=== PATIENT | male | born 1965 | race Caucasian/White ===

== ENCOUNTER 2019-09-11 08:46 | Observation (INO) | payer MEDICAID ==
[2019-09-11] MEDS ORDERED: Alum Hydrox/Mag Hydrox/Simeth 15 ML, Lidocaine 2% 5 ML PO ONE ×2 (09:04)
--- NOTE | 2019-09-11 09:10 | EDM.PDOC ---
ED HPI GENERAL MEDICAL PROBLEM - General Chief Complaint: Chest Pain Stated Complaint: chest pain Time Seen by Provider: 09/11/19 09:05 Source of Information: Reports: Patient History Limitations: Reports: No Limitations - History of Present Illness INITIAL COMMENTS - FREE TEXT/NARRATIVE: ptVale is a 53 y/o male presenting today w/ 04/06 non-radiating mid-chest pain since last night. Describes as a pressure like sensations and/or something stuck in his chest. Endorses having a pressure sensation in the chest and needing to vomit; however he kept retching w/ minimal amount of clear liquid emesis. Denies any new SOB but declares having some "sinus" issues which causes him to have difficulty breathing. Denies any diarrhea, constipation but endorses mid upper abdominal pain ; like something is stuck. Mentions a history of peptic ulcers for which he takes omeprazole daily. Smokes 1 PPD, denies any recent methamphetimine or marijuan use; states its been "years" since i've done meth or coke". chest Pain Score (Numeric/FACES): 6 - Related Data Allergies Allergy/AdvReac Type Severity Reaction Status Date / Time No Known Allergies Allergy Verified 09/11/19 09:00 Home Meds: Home Meds Losartan Potassium 25 mg PO DAILY 09/11/19 [History] Omeprazole Magnesium [Prilosec Otc] 40 mg PO DAILY 09/11/19 [History] Zaleplon 10 mg PO DAILY 09/11/19 [History] Past Medical History - Past Health History Medical/Surgical History: Denies Medical/Surgical History HEENT History: Reports: Sinusitis Cardiovascular History: Reports: Hypertension Gastrointestinal History: Reports: GERD, Other (See Below) Other Gastrointestinal History: ULCERS - Infectious Disease History Infectious Disease History: Reports: Chicken Pox Social & Family History - Tobacco Use Smoking Status *Q: Current Every Day Smoker Years of Tobacco use: 37 Packs/Tins Daily: 1 - Caffeine Use Caffeine Use: Reports: Coffee Caffeine Use Comment: 2 pots/ day - Recreational Drug Use Recreational Drug Use: Yes Drug Use in Last 12 Months: Yes Recreational Drug Type: Reports: Cocaine, Marijuana/Hashish, Methamphetamine ED ROS GENERAL - Review of Systems Review Of Systems: See Below Constitutional: Reports: Decreased Appetite. Denies: Fever, Chills HEENT: Reports: Sinus Problem Respiratory: Reports: Shortness of Breath. Denies: Cough, Hemoptysis Cardiovascular: Reports: Chest Pain. Denies: Dyspnea on Exertion, Edema, Lightheadedness, Palpitations GI/Abdominal: Reports: Abdominal Pain. Denies: Constipation, Diarrhea, Nausea Musculoskeletal: Denies: Back Pain, Muscle Stiffness Skin: Reports: Rash Neurological: Denies: Confusion, Dizziness, Headache Psychiatric: Denies: Agitation, Anxiety ED EXAM, GENERAL - Physical Exam Exam: See Below Exam Limited By: No Limitations General Appearance: Alert, No Apparent Distress Ears: Normal TMs Throat/Mouth: Normal Inspection, Normal Oropharynx, Other (poor dentition) Head: Atraumatic, Normocephalic, Other (no sinus tenderness or fullness ) Neck: Normal Inspection, Supple Respiratory/Chest: Other (b/l coarse bs in bases. moving air but prolonged expiratory phase ) Cardiovascular: Regular Rate, Rhythm, No Edema, No JVD GI/Abdominal: Other (+amdominal tenderness w/ tenderenss more dominant in epigastrum) Extremities: Non-Tender, No Pedal Edema (numerous excoriations over lower extremities ) Neurological: Alert, Oriented, CN II-XII Intact Psychiatric: Normal Affect, Normal Mood Skin Exam: Warm, Dry, Rash (rash over chest ansd lower extremitiites ), Other ( red rash over right upper chest not in dermatomal distribution. most likely a viral exanthem vs excoriations from dry skin ) EKG INTERPRETATION EKG Date: 09/11/19 Rhythm: NSR ST-T: Normal (sinus / WNL ; no signs of ischemia) Course - Vital Signs Text/Narrative:: re-examination: chest x-ray WNL. negative lactate. negative troponin x 1 . Mild improvement w/ GI cocktail/Pepcid. Most likely GI pathology. Offered admit for observation. pt. agreed. States his last EGD was 10 years ago. EKG WNL, NSR w/o st elevation/ or signs of ischemia Discussed case w/ Dr. Bryant; agreed to admit for observation: ACS r/o. pt. agreed to plan. We appreciate Dr Frazier Last Recorded V/S: Last Vital Signs Temp 97.4 F 09/11/19 08:58 Pulse 85 09/11/19 08:58 Resp 15 09/11/19 08:58 BP 148/86 H 09/11/19 08:58 Pulse Ox 99 09/11/19 08:58 - Orders/Labs/Meds Orders: Active Orders 24 hr Category Date Time Status Admission Status [Patient Status] [ADT] Stat ADT 09/11/19 11:57 Active EKG 12 Lead [EKG Documentation Completion] [RC] STAT Care 09/11/19 09:03 Active diphenhydrAMINE [Benadryl] Med 09/11/19 12:05 Once 25 mg IVPUSH ONETIME ONE Labs: Laboratory Tests 09/11/19 09/11/19 09/11/19 Range/Units 08:55 08:55 09:25 WBC 10.35 (4.0-11.0) K/uL RBC 4.88 (4.50-5.90) M/uL Hgb 16.2 (13.0-17.0) g/dL Hct 46.2 (38.0-50.0) % MCV 94.7 (80.0-98.0) fL MCH 33.2 H (27.0-32.0) pg MCHC 35.1 (31.0-37.0) g/dL RDW Std Deviation 44.8 (28.0-62.0) fl RDW Coeff of Nya 13 (11.0-15.0) % Plt Count 203 (150-400) K/uL MPV 11.00 (7.40-12.00) fL Neut % (Auto) 66.6 (48.0-80.0) % Lymph % (Auto) 23.1 (16.0-40.0) % [place] % (Auto) 7.7 (0.0-15.0) % Eos % (Auto) 2.3 (0.0-7.0) % Baso % (Auto) 0.3 (0.0-1.5) % Neut # (Auto) 6.9 H (1.4-5.7) K/uL Lymph # (Auto) 2.4 (0.6-2.4) K/uL [place] # (Auto) 0.8 (0.0-0.8) K/uL Eos # (Auto) 0.2 (0.0-0.7) K/uL Baso # (Auto) 0.0 (0.0-0.1) K/uL Nucleated RBC % 0.0 /100WBC Nucleated RBCs # 0 K/uL Lactate (0.20-2.00) mmol/L Sodium 134 L (136-148) mmol/L Potassium 4.2 (3.5-5.1) mmol/L Chloride 98 (98-107) mmol/L Carbon Dioxide 27.7 (21.0-32.0) mmol/L BUN 11 (7.0-18.0) mg/dL Creatinine 1.0 (0.8-1.3) mg/dL Est Cr Clr Drug Dosing 93.08 mL/min Estimated GFR (MDRD) > 60.0 ml/min Glucose 89 (74-106) mg/dL Calcium 8.6 (8.5-10.1) mg/dL Total Bilirubin 0.7 (0.2-1.0) mg/dL AST 25 (15-37) IU/L ALT 33 (14-63) IU/L Alkaline Phosphatase 75 (46-116) U/L Troponin I < 0.050 (0.000-0.056) ng/mL Total Protein 7.5 (6.4-8.2) g/dL Albumin 4.0 (3.4-5.0) g/dL Globulin 3.5 (2.6-4.0) g/dL Albumin/Globulin Ratio 1.1 (0.9-1.6) Lipase 121 (73-393) U/L Urine Opiates Screen NEGATIVE (NEGATIVE) Ur Oxycodone Screen NEGATIVE (NEGATIVE) Urine Methadone Screen NEGATIVE (NEGATIVE) Ur Barbiturates Screen NEGATIVE (NEGATIVE) Ur Phencyclidine Scrn NEGATIVE (NEGATIVE) Ur Amphetamine Screen NEGATIVE (NEGATIVE) U Methamphetamines Scrn NEGATIVE (NEGATIVE) U Benzodiazepines Scrn NEGATIVE (NEGATIVE) U Cocaine Metab Screen NEGATIVE (NEGATIVE) U Marijuana (THC) Screen POSITIVE (NEGATIVE) 09/11/19 Range/Units 11:05 WBC (4.0-11.0) K/uL RBC (4.50-5.90) M/uL Hgb (13.0-17.0) g/dL Hct (38.0-50.0) % MCV (80.0-98.0) fL MCH (27.0-32.0) pg MCHC (31.0-37.0) g/dL RDW Std Deviation (28.0-62.0) fl RDW Coeff of Nya (11.0-15.0) % Plt Count (150-400) K/uL MPV (7.40-12.00) fL Neut % (Auto) (48.0-80.0) % Lymph % (Auto) (16.0-40.0) % [place] % (Auto) (0.0-15.0) % Eos % (Auto) (0.0-7.0) % Baso % (Auto) (0.0-1.5) % Neut # (Auto) (1.4-5.7) K/uL Lymph # (Auto) (0.6-2.4) K/uL [place] # (Auto) (0.0-0.8) K/uL Eos # (Auto) (0.0-0.7) K/uL Baso # (Auto) (0.0-0.1) K/uL Nucleated RBC % /100WBC Nucleated RBCs # K/uL Lactate 0.9 (0.20-2.00) mmol/L Sodium (136-148) mmol/L Potassium (3.5-5.1) mmol/L Chloride (98-107) mmol/L Carbon Dioxide (21.0-32.0) mmol/L BUN (7.0-18.0) mg/dL Creatinine (0.8-1.3) mg/dL Est Cr Clr Drug Dosing mL/min Estimated GFR (MDRD) ml/min Glucose (74-106) mg/dL Calcium (8.5-10.1) mg/dL Total Bilirubin (0.2-1.0) mg/dL AST (15-37) IU/L ALT (14-63) IU/L Alkaline Phosphatase (46-116) U/L Troponin I (0.000-0.056) ng/mL Total Protein (6.4-8.2) g/dL Albumin (3.4-5.0) g/dL Globulin (2.6-4.0) g/dL Albumin/Globulin Ratio (0.9-1.6) Lipase (73-393) U/L Urine Opiates Screen (NEGATIVE) Ur Oxycodone Screen (NEGATIVE) Urine Methadone Screen (NEGATIVE) Ur Barbiturates Screen (NEGATIVE) Ur Phencyclidine Scrn (NEGATIVE) Ur Amphetamine Screen (NEGATIVE) U Methamphetamines Scrn (NEGATIVE) U Benzodiazepines Scrn (NEGATIVE) U Cocaine Metab Screen (NEGATIVE) U Marijuana (THC) Screen (NEGATIVE) Meds: Medications Discontinued Medications Generic Name Dose Route Start Last Admin Trade Name Freq PRN Reason Stop Dose Admin Aspirin 324 mg 09/11/19 10:37 09/11/19 10:48 Aspirin PO 09/11/19 10:38 324 mg ONETIME ONE Administration Al Hydroxide/Mg Hydroxide 15 0 ml 09/11/19 09:04 09/11/19 09:09 ml/ Lidocaine HCl 5 ml PO 09/11/19 09:05 1 each ONETIME ONE Administration Famotidine 20 mg 09/11/19 11:01 09/11/19 11:36 Pepcid IVPUSH 09/11/19 11:02 20 mg ONETIME ONE Administration Departure - Departure Time of Disposition: 12:07 Disposition: Refer to Observation Clinical Impression: Chest pain Referrals: PCP,Unknown [Primary Care Provider] - Forms: ED Department Discharge - My Orders Last 24 Hours: My Active Orders 09/11/19 09:03 EKG 12 Lead [EKG Documentation Completion] [RC] STAT 09/11/19 11:57 Admission Status [Patient Status] [ADT] Stat 09/11/19 12:05 diphenhydrAMINE [Benadryl] 25 mg IVPUSH ONETIME ONE - Assessment/Plan Last 24 Hours: My Active Orders 09/11/19 09:03 EKG 12 Lead [EKG Documentation Completion] [RC] STAT 09/11/19 11:57 Admission Status [Patient Status] [ADT] Stat 09/11/19 12:05 diphenhydrAMINE [Benadryl] 25 mg IVPUSH ONETIME ONE
[2019-09-11 09:42] LABS: BLOOD UREA NITROGEN,BUN 11 mg/dL (7.0-18.0); CARBON DIOXIDE,CO2 27.7 mmol/L (21.0-32.0); CHLORIDE,CL 98 mmol/L (98-107); GLUCOSE RANDOM 89 mg/dL (74-106); LIPASE 121 U/L (73-393); POTASSIUM,K 4.2 mmol/L (3.5-5.1); SODIUM,NA 134 mmol/L (136-148)
--- NOTE | 2019-09-11 09:49 | CR ---
CHEST 2 VIEWS INDICATION: Chest pain and shortness of breath. IMPRESSION: Normal heart size and vascular pattern. ECG Monitor leads projected over the patient. Lungs are clear. No pneumothorax or pleural effusion. Dictated by Talha Stark MD @ Sep 11 2019 9:47AM Signed by Dr. Talha Stark @ Sep 11 2019 9:48AM
[2019-09-11] MEDS ORDERED: Aspirin 81 MG Tab.Chew PO ONE (10:37)
[2019-09-11] MEDS ORDERED: Famotidine 20 MG/2 ML SDV IVPUSH ONE (11:01)
[2019-09-11] MEDS ORDERED: diphenhydrAMINE 50 MG/ML SDV IVPUSH ONE (12:05)
[2019-09-11] MEDS ORDERED: Sodium Chloride 0.9% 10 ML Syringe FLUSH PRN (13:03)
[2019-09-11] MEDS ORDERED: Sodium Chloride 0.9% 2.5 ML Syringe FLUSH PRN (13:03)
[2019-09-11] MEDS ORDERED: Acetaminophen 325 MG Tab PO PRN (13:03)
[2019-09-11] MEDS ORDERED: Ondansetron 4 MG/2 ML SDV IVPUSH PRN (13:03)
--- NOTE | 2019-09-11 13:08 | PCM.HP.2 ---
H&P History of Present Illness - General Date of Service: 09/11/19 Admit Problem/Dx: Admission Diagnosis/Problem Admission Diagnosis/Problem Chest pain Source of Information: Patient History Limitations: Reports: No Limitations - History of Present Illness Initial Comments - Free Text/Narative: This 53 year old male with pmh of polysubstance abuse in the past, tobacco abuse , GERD, HTN presented to the ED with pressure like sensations and/or something stuck in his chest since last evening around 12:30. He attempted to throw up with no success. He felt no associated symptoms. he reports history of peptic ulcers and takes medication daily for this. He smokes a little more than a 1/2 ppd of cigarettes and uses marijuana occasionally. No recent other recreational drug use. He adamantly does not want to stay, he is willing to stay for one more troponin but otherwise he keeps talking about how he is not staying overnight here due to the amount of money he has invested in tools in his truck. We discussed the need for him to sign out AMA due to the risk of or injury if the pain he was having was a heart attack. "I know if I leave its on me." In the ED labwork WNL. EKG SR no ST elevation. Troponin negative. He was on the floor for at most 2 hours, second troponin negative. He then left AMA prior to being seen again by myself my attending Dr Bryant. chest Pain Score (Numeric/FACES): 6 - Related Data Allergies/Adverse Reactions: Allergies Allergy/AdvReac Type Severity Reaction Status Date / Time No Known Allergies Allergy Verified 09/11/19 12:58 Home Medications: Home Meds Losartan Potassium 25 mg PO DAILY 09/11/19 [History] Omeprazole Magnesium [Prilosec Otc] 40 mg PO DAILY 09/11/19 [History] Zaleplon 10 mg PO DAILY 09/11/19 [History] Past Medical History - Past Health History Medical/Surgical History: Denies Medical/Surgical History HEENT History: Reports: Sinusitis Cardiovascular History: Reports: Hypertension Gastrointestinal History: Reports: GERD, Other (See Below) Other Gastrointestinal History: ULCERS - Infectious Disease History Infectious Disease History: Reports: Chicken Pox Social & Family History - Tobacco Use Smoking Status *Q: Current Every Day Smoker Years of Tobacco use: 37 Packs/Tins Daily: 1 - Caffeine Use Caffeine Use: Reports: Coffee Caffeine Use Comment: 2 pots/ day - Recreational Drug Use Recreational Drug Use: Yes Drug Use in Last 12 Months: Yes Recreational Drug Type: Reports: Cocaine, Marijuana/Hashish, Methamphetamine H&P Review of Systems - Review of Systems: Review Of Systems: See Below General: Reports: No Symptoms. Denies: Fever, Chills, Malaise Pulmonary: Reports: No Symptoms. Denies: Shortness of Breath Cardiovascular: Reports: No Symptoms. Denies: Chest Pain (no longer having pain. feels normal), Palpitations, Orthopnea Gastrointestinal: Reports: No Symptoms. Denies: Abdominal Pain, Decreased Appetite, Nausea, Vomiting Genitourinary: Reports: No Symptoms. Denies: Dysuria, Frequency Psychiatric: Reports: No Symptoms Neurological: Reports: No Symptoms Hematologic/Lymphatic: Reports: No Symptoms Immunologic: Reports: No Symptoms Exam - Exam Exam: See Below - Vital Signs Vital Signs: Last Vital Signs Temp 97.4 F 09/11/19 08:58 Pulse 85 09/11/19 08:58 Resp 16 09/11/19 12:00 BP 114/96 H 09/11/19 12:00 Pulse Ox 97 09/11/19 12:00 Weight: 86.636 kg - Exam General: Alert, Oriented HEENT: Conjunctiva Clear, Pupils Equal, Pupils Reactive Lungs: Clear to Auscultation, Normal Respiratory Effort Cardiovascular: Regular Rate, Regular Rhythm GI/Abdominal Exam: Normal Bowel Sounds, Soft, Non-Tender Extremities: Normal Inspection, Normal Range of Motion, Non-Tender Neuro Extensive - Mental Status: Alert, Oriented x3 Neuro Extensive - Motor, Sensory, Reflexes: CN II-XII Intact Psychiatric: Alert, Normal Affect, Normal Mood - Patient Data Lab Results Last 24 hrs: Laboratory Results - last 24 hr 09/11/19 09/11/19 09/11/19 Range/Units 08:55 08:55 09:25 WBC 10.35 (4.0-11.0) K/uL RBC 4.88 (4.50-5.90) M/uL Hgb 16.2 (13.0-17.0) g/dL Hct 46.2 (38.0-50.0) % MCV 94.7 (80.0-98.0) fL MCH 33.2 H (27.0-32.0) pg MCHC 35.1 (31.0-37.0) g/dL RDW Std Deviation 44.8 (28.0-62.0) fl RDW Coeff of Nya 13 (11.0-15.0) % Plt Count 203 (150-400) K/uL MPV 11.00 (7.40-12.00) fL Neut % (Auto) 66.6 (48.0-80.0) % Lymph % (Auto) 23.1 (16.0-40.0) % [place] % (Auto) 7.7 (0.0-15.0) % Eos % (Auto) 2.3 (0.0-7.0) % Baso % (Auto) 0.3 (0.0-1.5) % Neut # (Auto) 6.9 H (1.4-5.7) K/uL Lymph # (Auto) 2.4 (0.6-2.4) K/uL [place] # (Auto) 0.8 (0.0-0.8) K/uL Eos # (Auto) 0.2 (0.0-0.7) K/uL Baso # (Auto) 0.0 (0.0-0.1) K/uL Nucleated RBC % 0.0 /100WBC Nucleated RBCs # 0 K/uL Lactate (0.20-2.00) mmol/L Sodium 134 L (136-148) mmol/L Potassium 4.2 (3.5-5.1) mmol/L Chloride 98 (98-107) mmol/L Carbon Dioxide 27.7 (21.0-32.0) mmol/L BUN 11 (7.0-18.0) mg/dL Creatinine 1.0 (0.8-1.3) mg/dL Est Cr Clr Drug Dosing 93.08 mL/min Estimated GFR (MDRD) > 60.0 ml/min Glucose 89 (74-106) mg/dL Calcium 8.6 (8.5-10.1) mg/dL Total Bilirubin 0.7 (0.2-1.0) mg/dL AST 25 (15-37) IU/L ALT 33 (14-63) IU/L Alkaline Phosphatase 75 (46-116) U/L Troponin I < 0.050 (0.000-0.056) ng/mL Total Protein 7.5 (6.4-8.2) g/dL Albumin 4.0 (3.4-5.0) g/dL Globulin 3.5 (2.6-4.0) g/dL Albumin/Globulin Ratio 1.1 (0.9-1.6) Lipase 121 (73-393) U/L Urine Opiates Screen NEGATIVE (NEGATIVE) Ur Oxycodone Screen NEGATIVE (NEGATIVE) Urine Methadone Screen NEGATIVE (NEGATIVE) Ur Barbiturates Screen NEGATIVE (NEGATIVE) Ur Phencyclidine Scrn NEGATIVE (NEGATIVE) Ur Amphetamine Screen NEGATIVE (NEGATIVE) U Methamphetamines Scrn NEGATIVE (NEGATIVE) U Benzodiazepines Scrn NEGATIVE (NEGATIVE) U Cocaine Metab Screen NEGATIVE (NEGATIVE) U Marijuana (THC) Screen POSITIVE (NEGATIVE) 09/11/19 Range/Units 11:05 WBC (4.0-11.0) K/uL RBC (4.50-5.90) M/uL Hgb (13.0-17.0) g/dL Hct (38.0-50.0) % MCV (80.0-98.0) fL MCH (27.0-32.0) pg MCHC (31.0-37.0) g/dL RDW Std Deviation (28.0-62.0) fl RDW Coeff of Nya (11.0-15.0) % Plt Count (150-400) K/uL MPV (7.40-12.00) fL Neut % (Auto) (48.0-80.0) % Lymph % (Auto) (16.0-40.0) % [place] % (Auto) (0.0-15.0) % Eos % (Auto) (0.0-7.0) % Baso % (Auto) (0.0-1.5) % Neut # (Auto) (1.4-5.7) K/uL Lymph # (Auto) (0.6-2.4) K/uL [place] # (Auto) (0.0-0.8) K/uL Eos # (Auto) (0.0-0.7) K/uL Baso # (Auto) (0.0-0.1) K/uL Nucleated RBC % /100WBC Nucleated RBCs # K/uL Lactate 0.9 (0.20-2.00) mmol/L Sodium (136-148) mmol/L Potassium (3.5-5.1) mmol/L Chloride (98-107) mmol/L Carbon Dioxide (21.0-32.0) mmol/L BUN (7.0-18.0) mg/dL Creatinine (0.8-1.3) mg/dL Est Cr Clr Drug Dosing mL/min Estimated GFR (MDRD) ml/min Glucose (74-106) mg/dL Calcium (8.5-10.1) mg/dL Total Bilirubin (0.2-1.0) mg/dL AST (15-37) IU/L ALT (14-63) IU/L Alkaline Phosphatase (46-116) U/L Troponin I (0.000-0.056) ng/mL Total Protein (6.4-8.2) g/dL Albumin (3.4-5.0) g/dL Globulin (2.6-4.0) g/dL Albumin/Globulin Ratio (0.9-1.6) Lipase (73-393) U/L Urine Opiates Screen (NEGATIVE) Ur Oxycodone Screen (NEGATIVE) Urine Methadone Screen (NEGATIVE) Ur Barbiturates Screen (NEGATIVE) Ur Phencyclidine Scrn (NEGATIVE) Ur Amphetamine Screen (NEGATIVE) U Methamphetamines Scrn (NEGATIVE) U Benzodiazepines Scrn (NEGATIVE) U Cocaine Metab Screen (NEGATIVE) U Marijuana (THC) Screen (NEGATIVE) Result Diagrams: 09/11/19 08:55 09/11/19 08:55 - Problem List (1) Chest pain SNOMED Code(s): 24869529 ICD Code: R07.9 - CHEST PAIN, UNSPECIFIED Status: Acute Problem List Initiated/Reviewed/Updated: Yes Orders Last 24hrs: Active Orders 24 hr Category Date Time Status Admission Status [Patient Status] [ADT] Stat ADT 09/11/19 12:12 Active Antiembolic Devices [RC] PER UNIT ROUTINE Care 09/11/19 13:07 Ordered Intake and Output [RC] QSHIFT Care 09/11/19 13:06 Ordered Oxygen Therapy [RC] PRN Care 09/11/19 13:05 Ordered Telemetry Monitoring [Cardiac Monitoring] [RC] . Care 09/11/19 12:17 Active DIRECTED Telemetry Monitoring [Cardiac Monitoring] [RC] . Care 09/11/19 13:02 Ordered DIRECTED Up ad Roxanne [RC] ASDIRECTED Care 09/11/19 13:03 Ordered VTE/DVT Education [RC] PER UNIT ROUTINE Care 09/11/19 13:05 Ordered Vital Signs [RC] Q4H Care 09/11/19 13:05 Ordered Heart Healthy Diet [DIET] Diet 09/11/19 Lunch Ordered Acetaminophen [Tylenol] Med 09/11/19 13:03 Ordered 650 mg PO Q4H PRN Ondansetron [Zofran] Med 09/11/19 13:03 Ordered 4 mg IVPUSH Q4H PRN Sodium Chloride 0.9% [Saline Flush] Med 09/11/19 13:03 Ordered 10 ml FLUSH ASDIRECTED PRN Sodium Chloride 0.9% [Saline Flush] Med 09/11/19 13:03 Ordered 2.5 ml FLUSH ASDIRECTED PRN Saline Lock Insert [OM.PC] Routine Oth 09/11/19 13:03 Ordered Sequential Compression Device [OM.PC] Per Unit Routine Oth 09/11/19 13:06 Ordered Resuscitation Status Routine Resus Stat 09/11/19 13:03 Ordered Medication Orders Acetaminophen (Tylenol) 650 mg PO Q4H PRN PRN Reason: Pain (Mild 1-3)/fever Ondansetron HCl (Zofran) 4 mg IVPUSH Q4H PRN PRN Reason: Nausea Sodium Chloride (Saline Flush) 10 ml FLUSH ASDIRECTED PRN PRN Reason: Keep Vein Open Sodium Chloride (Saline Flush) 2.5 ml FLUSH ASDIRECTED PRN PRN Reason: Keep Vein Open Assessment/Plan Comment:: Discharge plan: patient left AMA prior to being fully evaluated for chest pain. - Mortality Measure Prognosis:: Good
[2019-09-11] MEDS ORDERED: IPRATROPIUM BROMIDE 0.03% NASBOTH PRN (13:59)
[2019-09-11 14:02] LABS: HEMOGLOBIN A1C 5.6 % (4.5-6.2)
[2019-09-11 14:37] VITALS: BP 136/85; PULSE 70
--- NOTE | 2019-09-11 15:36 | PCM.SN ---
- Free Text/Narrative Note: Patient left AMA before i could evaluate him.
[2019-09-11] MEDS ORDERED: ZALEPLON 10 MG PO PRN (21:00)
[2019-09-12] MEDS ORDERED: OMEPRAZOLE 40MG PO SCH (07:30)
[2019-09-12] MEDS ORDERED: LOSARTAN 25MG PO SCH (09:00)
== END 2019-09-11 15:20 | disposition left against medical advice (07) ==
LOC: MW.ED 08:46 → MW.MS 12:12
PROVIDERS: ADMIT Student in an Organized Health Care Education/Training Program; ATTEND Student in an Organized Health Care Education/Training Program
DX: R07.89 Other chest pain (principal); K21.9 Gastro-esophageal reflux disease without esophagitis; I10 Essential (primary) hypertension; F17.210 Nicotine dependence, cigarettes, uncomplicated
CPT/HCPCS: 36415; 71046; 80053; 80061; 80305; 83036; 83605; 83690; 84443; 84484; 85025; 93005; 96374; 96375; 99285; A9270; J1200; S0028; 99283; G0378; J3490

== ENCOUNTER 2020-06-15 17:54 | Emergency (ER) | payer MEDICAID, MEDICARE ==
[2020-06-15 18:23] VITALS: BP 110/77; PULSE 76
[2020-06-15] MEDS ORDERED: Sodium Chloride 0.9% 10 ML Syringe FLUSH PRN (18:47)
[2020-06-15] MEDS ORDERED: Sodium Chloride 0.9% 2.5 ML Syringe FLUSH PRN (18:47)
--- NOTE | 2020-06-15 18:49 | PCM.SN.2 ---
- Free Text/Narrative Note: Brief screening triage note. 54-year-old male presenting with a one-week history of intermittent chest pain, subjective abdominal distention, and intermittent abdominal pain. Chief complaint right now is generalized abdominal pain, had 2 episodes of nonbloody emesis prior to arrival. Also reports subjective constipation. Fleeting chest pain, none right now. Will order EKG, basic labs, troponin. Planned to sign out to oncoming nighttime physician at 1900 hrs. shift change - pt was picked up by AVELINO Owusu. In- person sign out was given to GLENNY to complete transition of care.
--- NOTE | 2020-06-15 19:13 | EDM.PDOC ---
ED [facility] GENERAL MEDICAL PROBLEM - General Chief Complaint: Abdominal Pain Stated Complaint: STOMACHE PAIN Time Seen by Provider: 06/15/20 18:49 Source of Information: Reports: Intermediate Records History Limitations: Reports: No Limitations - History of Present Illness INITIAL COMMENTS - FREE TEXT/NARRATIVE: HISTORY AND PHYSICAL: Add to HPI: (Assumed care of patient at 19:00. Received report from Dr. Lawton. Patient states he does drink alcohol and has about 3-4 beers a week. Patient states that he did have heavier alcohol use when he was younger but has decreased his use of alcohol. Patient does state he smokes a pack of cigarettes a day and has had shortness of breath off and on with the chest pain but is not currently having the symptoms at this time. Patient states he has had a hard time eating and drinking without having abdominal pain. Patient states he did have 2 beers today and started having worsening abdominal pain following this. Patient denies fever, chills, or cough. Denies headache, neck stiff ness, change in vision, syncope, or near syncope. Denies diarrhea, constipation, or dysuria. Has not noted any blood in urine or stool. Review of systems: As per history of present illness and below otherwise all systems reviewed and negative. Past medical history: As per history of present illness and as reviewed below otherwise noncontributory. Surgical history: As per history of present illness and as reviewed below otherwise noncontributory. Social history: See social history for further information Family history: As per history of present illness and as reviewed below otherwise noncontributory. Physical exam: General: Patient is alert, oriented, and in no acute distress. Patient sitting comfortably on exam table. Appears older than stated age. HEENT: Atraumatic, normocephalic, pupils equal and reactive bilaterally, negative for conjunctival pallor or scleral icterus, mucous membranes moist, TMs normal bilaterally, throat clear, neck supple, nontender, trachea midline. No drooling or trismus noted. No meningeal signs. No hot potato voice noted. Lungs: Clear to auscultation, breath sounds equal bilaterally, chest nontender. Heart: S1S2, regular rate and rhythm without overt murmur Abdomen: Distended, generalized moderate tenderness to palpation. Negative for costovertebral tenderness. Pelvis: Stable nontender. Genitourinary: Deferred. Rectal: Deferred. Skin: Intact, warm, dry. No lesions or rashes noted. Extremities: Atraumatic, negative for cords or calf pain. Neurovascular unremarkable. Neuro: Awake, alert, oriented. Cranial nerves II through XII unremarkable. Cerebellum unremarkable. Motor and sensory unremarkable throughout. Exam nonfocal. Notes: Dr. Carney directly involved in patient care. Patient was offered admission to observation and for further diagnostic evaluation but declines admission and adamantly requesting discharge after receiving antibiotics. We will give him IV antibiotics today in the ED for potential infectious cause as well as send him home on antibiotics. Instructed patient that he should seek outpatient colonoscopy and have this performed by general surgery. Patient referred to general surgery for colonoscopy as well is back to his primary care provider, Dr. Hebert. Signs and symptoms that would prompt return to the ED were thoroughly discussed with patient and expresses understanding. Voices understanding and is agreeable to plan of care. Denies any further questions or concerns at this time. Diagnostics: CBC, CMP, UA, EKG, CXR, Trop, Lipase, Abd/pelvic w cont Therapeutics: Flagyl IV, Rocephin IV Prescription: Fatou Strickland Impression: Colitis Abdominal pain, generalized Plan: 1. Take medication as prescribed. You can use Tylenol as directed for pain and discomfort. 2. Follow-up with your primary care provider as well as a general surgeon as discussed. Return to the ED as needed and as discussed. Definitive disposition and diagnosis as appropriate pending reevaluation and review of above Abdomen Pain Score (Numeric/FACES): 10 - Related Data Allergies Allergy/AdvReac Type Severity Reaction Status Date / Time No Known Allergies Allergy Verified 06/15/20 18:18 Home Meds: Home Meds Losartan Potassium 25 mg PO DAILY 09/11/19 [History] Zaleplon 10 mg PO DAILY 09/11/19 [History] Ciprofloxacin [Ciprofloxacin HCl] 500 mg PO BID 14 Days #28 tab 06/15/20 [Rx] metroNIDAZOLE [Flagyl] 500 mg PO TID 14 Days #42 tab 06/15/20 [Rx] Past Medical History - Past Health History Medical/Surgical History: Denies Medical/Surgical History HEENT History: Reports: Sinusitis Cardiovascular History: Reports: Hypertension Respiratory History: Reports: None Gastrointestinal History: Reports: GERD, Other (See Below) Other Gastrointestinal History: ULCERS Genitourinary History: Reports: None Musculoskeletal History: Reports: None Neurological History: Reports: None Psychiatric History: Reports: None Endocrine/Metabolic History: Reports: None Insulin Pump Model and Cell Maker: None Hematologic History: Reports: None Immunologic History: Reports: None Oncologic (Cancer) History: Reports: None Dermatologic History: Reports: None - Infectious Disease History Infectious Disease History: Reports: None - Past Surgical History Head Surgeries/Procedures: Reports: None Neurological Surgical History: Reports: None Social & Family History - Family History Family Medical History: Noncontributory - Tobacco Use Smoking Status *Q: Current Every Day Smoker Years of Tobacco use: 40 Packs/Tins Daily: 0.5 - Caffeine Use Caffeine Use: Reports: Coffee Caffeine Use Comment: 2 pots/ day - Recreational Drug Use Recreational Drug Use: Yes Drug Use in Last 12 Months: Yes Recreational Drug Type: Reports: Marijuana/Hashish ED ROS GENERAL - Review of Systems Review Of Systems: Comprehensive ROS is negative, except as noted in HPI. ED EXAM, GENERAL - Physical Exam Exam: See Below (see dictation) Course - Vital Signs Last Recorded V/S: Last Vital Signs Temp 96.5 F L 06/15/20 18:18 Pulse 76 06/15/20 18:18 Resp 18 06/15/20 18:18 BP 110/77 06/15/20 18:18 Pulse Ox 96 06/15/20 18:18 - Orders/Labs/Meds Orders: Active Orders 24 hr Category Date Time Status EKG Documentation Completion [RC] STAT Care 06/15/20 18:47 Active Pulse Oximetry [RC] ASDIRECTED Care 06/15/20 18:47 Active Sodium Chloride 0.9% [Saline Flush] Med 06/15/20 18:47 Active 10 ml FLUSH ASDIRECTED PRN Sodium Chloride 0.9% [Saline Flush] Med 06/15/20 18:47 Active 2.5 ml FLUSH ASDIRECTED PRN metroNIDAZOLE/Normal Saline [Flagyl 500 MG in NS 100 ML Med 06/15/20 20:48 Active ] 500 mg Premix Bag 1 bag IV ONETIME Saline Lock Insert [OM.PC] Stat Oth 06/15/20 18:47 Ordered Medication Orders Metronidazole 500 mg/ Premix 100 mls @ 100 mls/hr IV ONETIME ONE Stop: 06/15/20 21:47 Last Admin: 06/15/20 21:17 Dose: 100 mls/hr Documented by: NAGA Sodium Chloride (Saline Flush) 2.5 ml FLUSH ASDIRECTED PRN PRN Reason: Keep Vein Open Sodium Chloride (Saline Flush) 10 ml FLUSH ASDIRECTED PRN PRN Reason: Keep Vein Open Labs: Laboratory Tests 06/15/20 06/15/20 06/15/20 Range/Units 18:43 18:43 18:43 WBC 10.18 (4.0-11.0) K/uL RBC 4.96 (4.50-5.90) M/uL Hgb 16.5 (13.0-17.0) g/dL Hct 46.4 (38.0-50.0) % MCV 93.5 (80.0-98.0) fL MCH 33.3 H (27.0-32.0) pg MCHC 35.6 (31.0-37.0) g/dL RDW Std Deviation 44.0 (28.0-62.0) fl RDW Coeff of Nya 13 (11.0-15.0) % Plt Count 266 (150-400) K/uL MPV 11.60 (7.40-12.00) fL Neut % (Auto) 60.7 (48.0-80.0) % Lymph % (Auto) 26.6 (16.0-40.0) % [place] % (Auto) 7.4 (0.0-15.0) % Eos % (Auto) 4.7 (0.0-7.0) % Baso % (Auto) 0.6 (0.0-1.5) % Neut # (Auto) 6.2 H (1.4-5.7) K/uL Lymph # (Auto) 2.7 H (0.6-2.4) K/uL [place] # (Auto) 0.8 (0.0-0.8) K/uL Eos # (Auto) 0.5 (0.0-0.7) K/uL Baso # (Auto) 0.1 (0.0-0.1) K/uL Nucleated RBC % 0.0 /100WBC Nucleated RBCs # 0 K/uL Lactate 0.8 (0.20-2.00) mmol/L Sodium 136 (136-148) mmol/L Potassium 4.3 (3.5-5.1) mmol/L Chloride 99 (98-107) mmol/L Carbon Dioxide 25.9 (21.0-32.0) mmol/L BUN 8 (7.0-18.0) mg/dL Creatinine 1.0 (0.8-1.3) mg/dL Est Cr Clr Drug Dosing 92.03 mL/min Estimated GFR (MDRD) > 60.0 ml/min Glucose 91 (74-106) mg/dL Calcium 9.5 (8.5-10.1) mg/dL Total Bilirubin 0.4 (0.2-1.0) mg/dL AST 33 (15-37) IU/L ALT 34 (14-63) IU/L Alkaline Phosphatase 73 (46-116) U/L Troponin I < 0.050 (0.000-0.056) ng/mL Total Protein 7.7 (6.4-8.2) g/dL Albumin 4.0 (3.4-5.0) g/dL Globulin 3.7 (2.6-4.0) g/dL Albumin/Globulin Ratio 1.1 (0.9-1.6) Lipase 92 (73-393) U/L Meds: Medications Generic Name Dose Route Start Last Admin Trade Name Freq PRN Reason Stop Dose Admin Metronidazole 500 mg/ Premix 100 mls @ 100 mls/hr 06/15/20 20:48 06/15/20 21:17 IV 06/15/20 21:47 100 mls/hr ONETIME ONE Administration Sodium Chloride 2.5 ml 06/15/20 18:47 Saline Flush FLUSH ASDIRECTED PRN Keep Vein Open Sodium Chloride 10 ml 06/15/20 18:47 Saline Flush FLUSH ASDIRECTED PRN Keep Vein Open Discontinued Medications Generic Name Dose Route Start Last Admin Trade Name Freq PRN Reason Stop Dose Admin Ceftriaxone Sodium/Dextrose 1 50 mls @ 100 mls/hr 06/15/20 20:47 06/15/20 21:16 gm/ Premix IV 06/15/20 21:16 100 mls/hr ONETIME ONE Administration Iopamidol 100 ml 06/15/20 20:16 06/15/20 20:16 Isovue-370 (76%) IVPUSH 06/15/20 20:17 100 ml ONETIME STA Administration Departure - Departure Time of Disposition: 20:52 Disposition: Home, Self-Care 01 Clinical Impression: Colitis, Generalized abdominal pain - Discharge Information Prescriptions: Ciprofloxacin [Ciprofloxacin HCl] 500 mg PO BID 14 Days #28 tab metroNIDAZOLE [Flagyl] 500 mg PO TID 14 Days #42 tab Referrals: Kwesi Hebert CRNA [Physician] - Forms: ED Department Discharge Additional Instructions: The following information is given to patients seen in the emergency department who are being discharged to home. This information is to outline your options for follow-up care. We provide all patients seen in our emergency department with a follow-up referral. The need for follow-up, as well as the timing and circumstances, are variable depending upon the specifics of your emergency department visit. If you don't have a primary care physician on staff, we will provide you with a referral. We always advise you to contact your personal physician following an emergency department visit to inform them of the circumstance of the visit and for follow-up with them and/or the need for any referrals to a consulting specialist. The emergency department will also refer you to a specialist when appropriate. This referral assures that you have the opportunity for follow-up care with a specialist. All of these measure are taken in an effort to provide you with optimal care, which includes your follow-up. Under all circumstances we always encourage you to contact your private physician who remains a resource for coordinating your care. When calling for follow-up care, please make the office aware that this follow-up is from your recent emergency room visit. If for any reason you are refused follow-up, please contact the [facility] Emergency Department at and asked to speak to the emergency department charge nurse. [facility] [address] [place] [id number] [address] [facility] - General Surgery Professional Building [address] [place], [address] [place] [address] 1. Take medication as prescribed. You can use Tylenol as directed for pain and discomfort. 2. Follow-up with your primary care provider as well as a general surgeon as discussed. Return to the ED as needed and as discussed. Sepsis Event Note (ED) - Evaluation Sepsis Screening Result: No Definite Risk - Focused Exam Vital Signs: Vital Signs Temp Pulse Resp BP Pulse Ox 06/15/20 18:18 96.5 F L 76 18 110/77 96 - My Orders Last 24 Hours: My Active Orders 06/15/20 20:48 metroNIDAZOLE/Normal Saline [Flagyl 500 MG in NS 100 ML] 500 mg Premix Bag 1 bag IV ONETIME - Assessment/Plan Last 24 Hours: My Active Orders 06/15/20 20:48 metroNIDAZOLE/Normal Saline [Flagyl 500 MG in NS 100 ML] 500 mg Premix Bag 1 bag IV ONETIME
[2020-06-15 19:30] LABS: BLOOD UREA NITROGEN,BUN 8 mg/dL (7.0-18.0); CARBON DIOXIDE,CO2 25.9 mmol/L (21.0-32.0); CHLORIDE,CL 99 mmol/L (98-107); GLUCOSE RANDOM 91 mg/dL (74-106); LIPASE 92 U/L (73-393); POTASSIUM,K 4.3 mmol/L (3.5-5.1); SODIUM,NA 136 mmol/L (136-148)
--- NOTE | 2020-06-15 19:46 | CR ---
Chest: Portable view of the chest was obtained. Comparison: Previous chest x-ray of 09/11/19. Heart size and mediastinum are normal. Lungs are clear with no acute parenchymal change. Bony structures are grossly intact. Impression: 1. Nothing acute is seen on portable chest x-ray. Diagnostic code #1 This report was dictated in MDT
[2020-06-15] MEDS ORDERED: Iopamidol 755 Mg/ML 100 ML Bottle IVPUSH STA (20:16)
--- NOTE | 2020-06-15 20:36 | CT ---
Indication: Abdominal pain. Technique: Multiple contiguous axial images were obtained from lung bases to the symphysis pubis after the intravenous administration of 100 milliliters Isovue 370. Please note that all CT scans at this facility use dose modulation, iterative reconstruction, and/or weight-based dosing when appropriate to reduce radiation dose to as low as reasonably achievable. Comparison: None Findings: The lung bases are clear. No infiltrate, pleural effusion, or pneumothorax is identified. The heart is normal in size. Coronary artery calcifications are identified. No pericardial effusions identified. The liver, gallbladder, spleen, pancreas, adrenals, and kidneys are normal. No intrahepatic biliary ductal dilatation is identified. No hydronephrosis is seen. In the pelvis, the urinary bladder is distended. The prostate gland is normal. The small and large bowel are normal in caliber. The descending colon contains essentially no stool. Questionable thickening of the wall of the descending colon is identified versus lack of complete distention. The appendix is normal. The bowel wall thickness throughout the remainder of the small and large bowel appears to be within normal limits. No free air or free fluid is identified within the abdomen or pelvis. The aorta is normal in caliber. Mild vascular calcifications are seen. Degenerative changes of the spine are identified. No lytic or blastic lesions are identified. Impression: Thickening of the wall of the descending colon. True finding versus lack of complete distention. This can be seen with infectious/inflammatory etiologies. Occasionally this can be seen with ischemic bowel. Clinical follow-up is recommended. Please note that all CT scans at this facility use dose modulation, iterative reconstruction, and/or weight-based dosing when appropriate to reduce radiation dose to as low as reasonably achievable. Dictated by Candida Tran MD @ Jun 15 2020 8:23PM Signed by Dr. Candida Tran @ Jun 15 2020 8:35PM
[2020-06-15] MEDS ORDERED: cefTRIAXone 1 GM in Premix Bag 1 BAG IV ONE (20:47)
[2020-06-15] MEDS ORDERED: metroNIDAZOLE/Normal Saline 500 MG in Premix Bag 1 BAG IV ONE (20:48)
== END 2020-06-15 21:57 | disposition home or self-care (01) ==
LOC: MW.ED 17:54
DX: K52.9 Noninfective gastroenteritis and colitis, unspecified (principal); F17.210 Nicotine dependence, cigarettes, uncomplicated; I10 Essential (primary) hypertension; Z79.899 Other long term (current) drug therapy
CPT/HCPCS: 36415; 71045; 74177; 80053; 83605; 83690; 84484; 85025; 93005; 96365; 96368; 99284; J0696; J3490; Q9967; 99283